=== PATIENT | male | born 1960 | race Caucasian/White ===

== ENCOUNTER 2017-02-01 15:26 | Emergency (ER) | payer MEDICARE, MEDICAID ==
[~2017-02-01] VITALS: Ht 172.7 cm; Wt 69.8 kg
[2017-02-01 16:17] VITALS: BP 122/78
== END 2017-02-01 17:17 | disposition home or self-care (01) ==
LOC: ED 16:30
DX: H92.01 Otalgia, right ear (principal); H66.011 Acute suppurative otitis media with spontaneous rupture of ear drum, right ear
CPT/HCPCS: 99283

== ENCOUNTER 2018-05-29 09:03 | Emergency (ER) | payer MEDICARE, MEDICAID ==
[~2018-05-29] VITALS: Ht 167.6 cm; Wt 69.5 kg
[2018-05-29 09:07] VITALS: BP 123/84
[2018-05-29] MEDS ORDERED: KETOROLAC 30 MG/1 ML ONE (09:31)
--- NOTE | 2018-05-29 09:44 | NUR ---
MEDICATED PER ORDERS FOR FINGER PAIN. PT STATES PAIN IS 4/10
[2018-05-29] MEDS ORDERED: KETOROLAC 30 MG/1 ML IM ONE (10:00)
--- NOTE | 2018-05-29 10:15 | NUR ---
PT STATES PAIN IS AT 1/10
--- NOTE | 2018-05-29 10:24 | NUR ---
Patient/Caregiver given discharge instructions and they have confirmed that they understand the instructions. Patient ambulatory with steady gait.
== END 2018-05-29 10:26 | disposition home or self-care (01) ==
LOC: ED 10:20
DX: S69.91XA Unspecified injury of right wrist, hand and finger(s), initial encounter (principal); G89.29 Other chronic pain; M79.644 Pain in right finger(s); M20.091 Other deformity of right finger(s); F31.9 Bipolar disorder, unspecified; Z72.9 Problem related to lifestyle, unspecified; Z59.0 Homelessness
CPT/HCPCS: 73130; 96372; 99283; J1885

== ENCOUNTER 2019-05-12 20:25 | Emergency (ER) | payer MEDICARE, MEDICAID ==
[~2019-05-12] VITALS: Ht 172.7 cm; Wt 66.6 kg
[2019-05-12 20:42] VITALS: BP 113/76
== END 2019-05-12 20:53 | disposition home or self-care (01) ==
LOC: ED 20:48
DX: R09.81 Nasal congestion (principal); Z59.0 Homelessness
CPT/HCPCS: 99282

== ENCOUNTER 2019-09-03 23:21 | Emergency (ER) | payer MEDICARE, MEDICAID ==
[~2019-09-03] VITALS: Ht 172.7 cm; Wt 72.0 kg
[2019-09-03 23:27] VITALS: BP 147/98
== END 2019-09-04 01:38 | disposition home or self-care (01) ==
LOC: ED 09-04 01:24
DX: F41.1 Generalized anxiety disorder (principal); F31.9 Bipolar disorder, unspecified; F20.9 Schizophrenia, unspecified; Z76.0 Encounter for issue of repeat prescription; Z72.9 Problem related to lifestyle, unspecified
CPT/HCPCS: 99281

== ENCOUNTER 2020-01-13 15:25 | Emergency (ER) | payer MEDICARE, MEDICAID ==
[~2020-01-13] VITALS: Ht 172.7 cm; Wt 74.5 kg
--- NOTE | 2020-01-13 20:32 | NUR ---
PATIENT IN TRIAGE WITH PIT PROVIDER FOR INTERVIEW. PATIENT WILL BE DISCHARGED FROM TRIAGE WITH REFERRALS.
[2020-01-13 20:44] VITALS: BP 122/71
== END 2020-01-13 20:46 | disposition home or self-care (01) ==
LOC: ED 20:15
DX: I10 Essential (primary) hypertension (principal); Z76.0 Encounter for issue of repeat prescription
CPT/HCPCS: 36415; 80178; 99283

== ENCOUNTER 2020-05-15 02:08 | Emergency (ER) | payer MEDICARE, MEDICAID ==
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
--- NOTE | 2020-05-15 03:00 | NUR ---
PT SUPINE ON GURNEY, RESTING CALMLY WITH EYES CLOSED. URINE SAMPLE PROVIDED AND WALKED TO LAB BY THIS RN.
[2020-05-15 03:02] LABS: ALANINE AMINOTRANSFERASE 89 U/L (12-78); ALBUMIN 4.2 g/dL (3.4-5.0); ANION GAP 6 mmol/L (5-15); CALCIUM 9.6 mg/dL (8.5-10.1); CHLORIDE 105 mmol/L (98-107); CREATININE 1.25 mg/dL (0.7-1.3)
[2020-05-15 03:04] LABS: ALKALINE PHOSPHATASE 95 U/L (45-117); BILIRUBIN,TOTAL 0.6 mg/dL (0.2-1.0); TOTAL PROTEIN 9.2 g/dL (6.4-8.2)
[2020-05-15 03:05] LABS: SALICYLATE LEVEL < 1.7 mg/dL (2.8-20.0)
--- NOTE | 2020-05-15 03:05 | NUR ---
PT CONTINUALLY TALKING TO SELF IN ROOM, "ROBB MADE ME COME HERE, I HATE HOW MUCH YOU'VE DONE TO ME. " PT ABLE TO DISCUSS AND CONVERSATE WITH STAFF An [employer]. WHEN STAFF EXIT ROOM, PT CONTINUES TO RAMBLE IN ROOM. PT CONTINUES TO STATE "I DONT TAKE MY MEDS ANYMORE, THEY DO FUNNY THINGS TO ME, SO I STOPPED".
[2020-05-15 03:15] LABS: BASOPHILS % (AUTO) 0 % (0-1); EOSINOPHILS % (AUTO) 0 % (1-7); LYMPHOCYTES % (AUTO) 35 % (22-44); MEAN CORPUSCULAR HEMOGLOBIN 29.7 pg (27.5-34.5); MONOCYTES % (AUTO) 9 % (2-9); NEUTROPHILS % (AUTO) 55 % (42-75); PLATELET COUNT 324 x10^3/uL (130-400); RED BLOOD COUNT 5.82 x10^6/uL (4.38-5.82); RED CELL DISTRIBUTION WIDTH 14.4 % (9.4-14.8)
[2020-05-15 03:43] LABS: AMPHETAMINE SCREEN, URINE Positive (Negative); BARBITURATE SCREEN, URINE Negative (Negative); BENZODIAZEPINE SCREEN, URINE Negative (Negative); CANNABINOID SCREEN, URINE Negative (Negative); COCAINE SCREEN, URINE Negative (Negative); METHADONE SCREEN, URINE Negative (Negative); OPIATE SCREEN, URINE Negative (Negative)
--- NOTE | 2020-05-15 04:00 | NUR ---
PT MOVED FROM ED ROOM 4 TO ED ROOM 2. PT PLACED ON L2K BY ERP DUE TO INABILITY TO PROPERLY TAKE CARE OF SELF IN AN APPROPRIATE MANNER. PT DENIES SI OR HI. PT CHANGED INTO GOWN AND PROVIDED SOCKS. ALL BELONGINGS, X2 BAGS PLACED IN APPOPRIAE LOCKER. ROOM SECURED, SAFETY [place] DOWN, SITTER IN VIEW. PT DENIES ANY ADDITIONAL NEEDS AT THIS TIME.
--- NOTE | 2020-05-15 05:58 | NUR ---
Packet faxed to [facility] for first dibs.
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
[2020-05-15 07:54] VITALS: BP 124/61
--- NOTE | 2020-05-15 09:30 | NUR ---
REMAINS COOPERATIVE, LYING IN GURNEY WITH EYES OPEN AND WATCHING STAFF. NO DISTRESS
--- NOTE | 2020-05-15 10:31 | NUR ---
REPORT TO GREG COLON . PT TO BE TRANSFERRED TO [facility]
== END 2020-05-15 22:45 | disposition other institution (70) ==
LOC: ED 03:04
DX: F23 Brief psychotic disorder (principal); F22 Delusional disorders; Z20.822 Contact with and (suspected) exposure to COVID-19
CPT/HCPCS: 36415; 80053; 80299; 80307; 80320; 80329; 85025; 87426; 99283; G0480

== ENCOUNTER 2020-05-15 09:36 | Inpatient (IN) | payer MEDICARE, MEDICAID ==
[~2020-05-15] VITALS: Ht 172.7 cm; Wt 70.6 kg
[2020-05-15] MEDS ORDERED: POLYETHYLENE GLYCOL 17 GM PACKET PO PRN (10:00)
[2020-05-15] MEDS ORDERED: DOCUSATE 100 MG CAPSULE PO PRN (10:00)
[2020-05-15] MEDS ORDERED: ONDANSETRON ODT 4 MG PO PRN (10:00)
[2020-05-15] MEDS ORDERED: BISACODYL 10 MG SUPP PR PRN (10:00)
[2020-05-15 11:24] VITALS: BP 131/82
[2020-05-15] MEDS ORDERED: POTASSIUM CHLORIDE 20 MEQ TAB.ER.PRT PO ONE (12:30)
[2020-05-15] MEDS ORDERED: RISPERIDONE 1 MG TAB.RAPDIS ONE (13:01)
[2020-05-15] MEDS: PROPRANOLOL 10 MG TABLET PO SCH ×2 (13:01→20:28)
[2020-05-15] MEDS: RISPERIDONE 1 MG TABLET PO SCH ×2 (13:02→20:28)
[2020-05-15] MEDS: LITHIUM CARBONATE 300 MG CAPSULE PO SCH ×2 (13:02→20:28)
[2020-05-15 19:17] VITALS: BP 118/75
[2020-05-16] MEDS: PROPRANOLOL 10 MG TABLET PO SCH ×3 (06:16→21:02)
[2020-05-16 06:42] LABS: INTERNATIONAL NORMALIZED RATIO 1.06 (0.93-1.1); PROTHROMBIN TIME 11.3 Seconds (9.6-11.5)
[2020-05-16 06:43] LABS: ALBUMIN 3.3 g/dL (3.4-5.0); ANION GAP 4 mmol/L (5-15); CHLORIDE 109 mmol/L (98-107)
[2020-05-16 06:54] LABS: ALANINE AMINOTRANSFERASE 86 U/L (12-78); ALKALINE PHOSPHATASE 73 U/L (45-117); BILIRUBIN,TOTAL 0.5 mg/dL (0.2-1.0); CHOL/HDL RATIO 2.6; CHOLESTEROL, TOTAL 110 mg/dL (140-239); CREATININE 1.01 mg/dL (0.7-1.3); FREE T4 (FREE THYROXINE) 1.13 ng/dL (0.76-1.46); HDL CHOL % 39 % (26-37); HDL CHOLESTEROL (DIRECT) 43 mg/dL (40-60); LDL CHOLESTEROL,CALCULATED 55 mg/dL (54-169); LDL/HDL RATIO 1.3 (0.5-3.0); TOTAL PROTEIN 7.4 g/dL (6.4-8.2); TRIGLYCERIDES 61 mg/dL (50-200); VLDL CHOLESTEROL 12 mg/dL (0-25)
[2020-05-16 07:36] VITALS: BP 120/74
[2020-05-16] MEDS: RISPERIDONE 1 MG TABLET PO SCH ×2 (09:14→21:03)
[2020-05-16] MEDS: LITHIUM CARBONATE 300 MG CAPSULE PO SCH ×2 (09:14→21:03)
[2020-05-16 14:05] VITALS: BP 118/75
[2020-05-16 19:32] VITALS: BP 114/69
[2020-05-16] MEDS: ACETAMINOPHEN 325 MG TABLET PO PRN (21:02)
[2020-05-16 21:14] VITALS: BP 150/82
[2020-05-17 05:50] VITALS: BP 130/73
[2020-05-17] MEDS: PROPRANOLOL 10 MG TABLET PO SCH ×3 (05:54→20:31)
[2020-05-17] MEDS: LITHIUM CARBONATE 300 MG CAPSULE PO SCH ×2 (08:57→20:31)
[2020-05-17] MEDS: RISPERIDONE 1 MG TABLET PO SCH ×2 (08:58→20:31)
[2020-05-17 19:16] VITALS: BP 110/70
[2020-05-18 02:56] LABS: MICROSCOPIC NOT IND
[2020-05-18] MEDS: PROPRANOLOL 10 MG TABLET PO SCH ×3 (05:47→20:30)
[2020-05-18 07:55] VITALS: BP 120/74
[2020-05-18] MEDS: LITHIUM CARBONATE 300 MG CAPSULE PO SCH ×2 (08:10→20:31)
[2020-05-18] MEDS: RISPERIDONE 1 MG TABLET PO SCH ×2 (08:10→20:30)
[2020-05-18 14:16] VITALS: BP 111/75
[2020-05-18] MEDS: ACETAMINOPHEN 325 MG TABLET PO PRN (17:58)
[2020-05-18 19:52] VITALS: BP 109/65
[2020-05-19 06:00] VITALS: BP 125/75
[2020-05-19] MEDS: PROPRANOLOL 10 MG TABLET PO SCH ×3 (06:08→20:48)
[2020-05-19 07:53] VITALS: BP 119/73
[2020-05-19] MEDS: LITHIUM CARBONATE 300 MG CAPSULE PO SCH ×2 (09:57→20:48)
[2020-05-19] MEDS: RISPERIDONE 1 MG TABLET PO SCH ×2 (09:57→20:48)
[2020-05-19 19:25] VITALS: BP 112/72
[2020-05-20] MEDS: PROPRANOLOL 10 MG TABLET PO SCH (05:59)
[2020-05-20 07:35] VITALS: BP 127/83
[2020-05-20] MEDS: RISPERIDONE 1 MG TABLET PO SCH (08:54)
[2020-05-20] MEDS: LITHIUM CARBONATE 300 MG CAPSULE PO SCH (08:54)
[2020-05-20] MEDS ORDERED: RISP1TAB90 PO (13:11)
[2020-05-20] MEDS ORDERED: PROP10TA16 PO (13:11)
[2020-05-20] MEDS ORDERED: LITH300C PO (13:11)
== END 2020-05-20 13:59 | disposition home or self-care (01) | DRG 885 ==
LOC: 3E 11:13
PROVIDERS: ADMIT Psychiatry & Neurology Psychosomatic Medicine; ATTEND Psychiatry & Neurology Psychosomatic Medicine
DX: F31.5 Bipolar disorder, current episode depressed, severe, with psychotic features (principal); E87.6 Hypokalemia; B19.20 Unspecified viral hepatitis C without hepatic coma; D75.1 Secondary polycythemia; F41.1 Generalized anxiety disorder; F17.200 Nicotine dependence, unspecified, uncomplicated; N18.2 Chronic kidney disease, stage 2 (mild); Z59.0 Homelessness; Z79.899 Other long term (current) drug therapy; Z82.61 Family history of arthritis
CPT/HCPCS: 36415; 71045; 76705; 80053; 80061; 80074; 80178; 81003; 84439; 84443; 85610; 87521; 93005

== ENCOUNTER 2020-10-12 10:17 | Emergency (ER) | payer MEDICAID, MEDICARE ==
[~2020-10-12] VITALS: Ht 172.7 cm; Wt 65.0 kg
[~2020-10-12 10:17] MED LIST: LITH300C PO; PROP10TA16 PO; RISP1TAB90 PO
[2020-10-12 10:20] VITALS: BP 120/72
== END 2020-10-12 12:09 | disposition home or self-care (01) ==
LOC: ED 11:10
DX: F41.9 Anxiety disorder, unspecified (principal); Z76.0 Encounter for issue of repeat prescription
CPT/HCPCS: 99281